=== PATIENT | male | born 1995 | race Caucasian/White ===

== ENCOUNTER 2020-05-10 07:45 | Outpatient (CLI) | payer OTHER ==
[2020-05-10 12:33] LABS: BASOPHILS # (AUTO) 0.1 10^3/uL (0.0-0.1); BASOPHILS % (AUTO) 0.8 %; EOSINOPHILS # (AUTO) 0.2 10^3/uL (0.0-0.7); HGB - HEMOGLOBIN 15.1 g/dL (14.0-18.0); LYMPHOCYTES # (AUTO) 1.6 10^3/uL (1.5-3.5); LYMPHOCYTES % (AUTO) 26.5 %; MEAN CORPUSCULAR HGB CONC 33.2 g/dL (32.0-36.0); MEAN CORPUSCULAR VOLUME 96.4 fL (80.0-94.0); MEAN PLATELET VOLUME 10.8 fL (7.4-11.4); MONOCYTES # (AUTO) 0.4 10^3/uL (0.0-1.0); MONOCYTES % (AUTO) 7.3 %; NEUTROPHILS # (AUTO) 3.7 10^3/uL (1.5-6.6); NEUTROPHILS % (AUTO) 62.2 %; PLT - PLATELET COUNT 251 10^3/uL (130-450); RED BLOOD COUNT 4.72 10^6/uL (4.70-6.10); RED CELL DISTRIBUTION WIDTH 11.7 % (12.0-15.0); WHITE BLOOD COUNT 5.9 x10^3/uL (4.8-10.8)
[2020-05-10 13:11] LABS: ALBUMIN 5.4 g/dL (3.2-5.5); ALBUMIN/GLOBULIN RATIO 1.9 (1.0-2.2); ALKALINE PHOSPHATASE 64 IU/L (42-121); ALT ALANINE AMINOTRANSFERASE 22 IU/L (10-60); AST ASPARTATE AMINOTRANSFERASE 24 IU/L (10-42); BILIRUBIN,TOTAL 0.9 mg/dL (0.2-1.0); BUN - BLOOD UREA NITROGEN 10 mg/dL (6-20); CALCIUM 9.6 mg/dL (8.5-10.3); CARBON DIOXIDE - CO2 25 mmol/L (21-32); CHLORIDE 106 mmol/L (101-111); CHOL/HDL RATIO 3.9 (<5.0); CHOLESTEROL 229 mg/dL; GLUCOSE 100 mg/dL (70-100); HDL CHOLESTEROL 59 mg/dL; LDL CHOLESTEROL,CALCULATED 141 mg/dL; LDL/HDL RATIO 2.4 (<3.6); SODIUM 138 mmol/L (135-145); TOTAL PROTEIN 8.3 g/dL (6.7-8.2); VLDL CHOLESTEROL 29 mg/dL
== END 2020-05-10 23:59 | disposition home or self-care (01) ==
LOC: LAB.WCP 07:45
PROVIDERS: ATTEND Family Medicine
DX: Z00.00 Encounter for general adult medical examination without abnormal findings (principal); F32.9 Major depressive disorder, single episode, unspecified
CPT/HCPCS: 36415; 80053; 80061; 82306; 83721; 84443; 85025

== ENCOUNTER 2020-11-09 18:38 | Outpatient (CLI) | payer OTHER | END 2020-11-09 18:39 | disposition home or self-care (01) | LOC: COV 18:38 | PROVIDERS: ATTEND Family Medicine | DX: R05 Cough (principal); Z20.822 Contact with and (suspected) exposure to COVID-19; R53.83 Other fatigue; R68.83 Chills (without fever); J02.9 Acute pharyngitis, unspecified; R09.81 Nasal congestion ==

== ENCOUNTER 2021-10-16 08:00 | Outpatient (CLI) | payer OTHER | END 2021-10-16 23:59 | LOC: LAB.N 08:00 | PROVIDERS: ATTEND Physician Assistant | DX: U07.1 COVID-19 (principal) ==

== ENCOUNTER 2022-11-15 08:00 | Outpatient (CLI) | payer MEDICAID, OTHER ==
[2022-11-16 00:01] LABS: CHLAMYDIA TRACHOMATIS DNA NEGATIVE (NEGATIVE); NEISSERIA GONORRHOEAE DNA NEGATIVE (NEGATIVE)
[2022-11-17 08:08] LABS: RPR Non Reactive (Non Reactive)
[2022-11-17 09:08] LABS: HSV 2 IGG TYPE SPEC <0.91 index (0.00-0.90)
[2022-11-17 11:08] LABS: HIV SCREEN 4TH GENERATION Non Reactive (Non Reactive)
[2022-11-18 14:08] LABS: HCV AB <0.1 s/co ratio (0.0-0.9)
== END 2022-11-15 23:59 | disposition home or self-care (01) ==
LOC: LAB.N 08:00
PROVIDERS: ATTEND Family Medicine
DX: Z11.3 Encounter for screening for infections with a predominantly sexual mode of transmission (principal)
CPT/HCPCS: 36415; 86592; 86695; 86696; 86803; 87389; 87491; 87591; 87661

== ENCOUNTER 2023-09-12 13:59 | Emergency (ER) | payer MEDICAID, OTHER ==
[2023-09-12 14:11] VITALS: O2SAT 100
--- NOTE | 2023-09-12 14:26 | ED Physician Documentation ---
PD HPI LOWER EXT INJURY - Stated complaint Stated Complaint: RT FT SWELLING - Chief complaint Chief Complaint: Trauma Ext - History obtained from History obtained from: Patient - History of Present Illness PD HPI LOW EXT INJURY LOCATION: Right, Ankle Type of injury: Twist (stepping down/ fall from lower rungs of ladder, landing to right foot and twisting inversion of ankle.) Where injury occurred: Home Timing - onset: How many days ago (3) Timing - details: Abrupt onset, Still present Associated symptoms: Weakness, Swelling, Discolored (bruising showed at sides of heel today.) Recently seen: Not recently seen Review of Systems Skin: denies: Abrasion (s), Laceration (s) Musculoskeletal: denies: Back pain Neurologic: denies: Focal weakness, Numbness PD PAST MEDICAL HISTORY - Past Medical History Past Medical History: No - Past Surgical History Past Surgical History: Yes - Present Medications Home Medications: Ambulatory Orders Medication Instructions Recorded Confirmed No Known Home Medications 09/12/23 09/12/23 - Allergies Allergies/Adverse Reactions: Allergies Allergy/AdvReac Type Severity Reaction Status Date / Time amoxicillin Allergy Unknown Verified 09/12/23 14:12 cefaclor [From Ceclor] Allergy Unknown Verified 09/12/23 14:12 sulfamethoxazole Allergy Unknown Verified 09/12/23 14:12 [From Septra] trimethoprim [From Septra] Allergy Unknown Verified 09/12/23 14:12 - Social History Does the pt smoke?: No Smoking Status: Never smoker PD ED PE NORMAL - Vitals Vital signs reviewed: Yes - General General: Alert and oriented X 3, No acute distress, Well developed/nourished - Derm Derm: Normal color, Warm and dry - Extremities Extremities: Other (right ankle with tendernesa and swelling mainly laterally but some medial as well. Effusion of joint. There is purple bruising linear on medial and lateral sides of heel. Not tender in those areas though. Stress testing of ankle ligaments not done due to pain.) - Neuro Neuro: Alert and oriented X 3, No motor deficit (though oimited stength due to pain of movement. ), No sensory deficit, Normal speech Results - Vitals Vitals: Vital Signs - 24 hr 09/12/23 09/12/23 14:08 15:35 Temperature 36.4 C L 36.5 C Heart Rate 100 90 Respiratory 15 16 Rate Blood Pressure 153/84 H 140/80 H O2 Saturation 100 100 - Rads (name of study) right ankle Relevant Findings:: Prelim report reviewed, EMP independent interpretation of test (no fractures. ) PD Medical Decision Making - ED course Complexity details: reviewed results (xray showed no fractures. ), considered differential (had injury to ankle when stepping down and inversion. Pain, swelling and now bruising ankle and foot. Unable to put full weight due to pain. Can get xray to distinguish fx from sprain. ), d/w patient Departure - Departure Disposition: 01 Home, Self Care Clinical Impression: Moderate right ankle sprain Qualifiers: Encounter type: initial encounter Qualified Code(s): S93.401A - Sprain of unspecified ligament of right ankle, initial encounter Condition: Stable Record reviewed to determine appropriate education?: Yes Instructions: ED Sprain Ankle Follow-Up: Orthopedic Care [Provider Group] Comments: Your x-ray appears normal without any signs of fractures. However there is a lot of swelling and some bruising around the ankle suggesting some partial tears of the ligaments and muscles. These can still take a while for healing, typically in the several weeks timeframe compared to several days to week for simple sprain. Use the walking boot to help support the ankle initially and likely for the first week or 2. As it is feeling improved, you can switch to a simpler type ankle brace that can be gotten at the store such as a lace on type or one that fits like a stirrup. I would suggest having some support to the ankle for likely a month timeframe as this is healing to keep from reinjury. Progress use and ambulating in such as tolerated. I would anticipate a good improvement over the first week or 2 and then slower improvement through the remainder of the month. Follow-up with orthopedics if not improving well in that sort of timeframe. Elevate ice and rest your ankle often for swelling. I would suggest some anti- inflammatory such as ibuprofen or naproxen 2 or 3 times daily for the next week or so to help with inflammation and pain. Add Tylenol if needed every 4-6 hours. Forms: PCP List, Activity restrictions Discharge Date/Time: 09/12/23 15:35
[2023-09-12 15:37] VITALS: BP 140/80
--- NOTE | 2023-09-12 15:53 | XRAY Report ---
PROCEDURE: Ankle 3 View RT INDICATIONS: ankle injury 3 days ago TECHNIQUE: 3 views of the ankle were acquired. COMPARISON: None. FINDINGS: Bones: No fractures or dislocations. Ankle mortise is normally aligned. No suspicious bony lesions . Soft tissues: There is a small tibiotalar joint effusion. There is mild lateral malleolar soft tiss ue swelling. Achilles tendon appears normal. IMPRESSION: Mild soft tissue swelling and small joint effusion. No fracture visualized. If there is high clinical suspicion for occult fracture, short interval repeat study or cross-section al imaging could be used. Reviewed by: Ashleigh Miller MD on 09/12/2023 3:51 PM PST Approved by: Ashleigh Miller MD on 09/12/2023 3:51 PM PST Station ID: [id number]
== END 2023-09-12 15:35 | disposition home or self-care (01) ==
LOC: ED 13:59
DX: S93.401A Sprain of unspecified ligament of right ankle, initial encounter (principal); X50.1XXA Overexertion from prolonged static or awkward postures, initial encounter; Y93.89 Activity, other specified; Y92.89 Other specified places as the place of occurrence of the external cause
CPT/HCPCS: 99283

== ENCOUNTER 2023-10-15 10:00 | Outpatient (CLI) | payer MEDICAID ==
[2023-10-15 12:09] LABS: BASOPHILS # (AUTO) 0.1 10^3/uL (0.0-0.1); EOSINOPHILS # (AUTO) 0.2 10^3/uL (0.0-0.7); EOSINOPHILS % (AUTO) 2.7 %; HGB - HEMOGLOBIN 15.4 g/dL (14.0-18.0); LYMPHOCYTES # (AUTO) 1.2 10^3/uL (1.5-3.5); LYMPHOCYTES % (AUTO) 19.7 %; MEAN CORPUSCULAR HEMOGLOBIN 34.1 pg (27.0-31.0); MEAN CORPUSCULAR HGB CONC 33.5 g/dL (32.0-36.0); MEAN PLATELET VOLUME 10.3 fL (7.4-11.4); MONOCYTES # (AUTO) 0.8 10^3/uL (0.0-1.0); NEUTROPHILS # (AUTO) 3.7 10^3/uL (1.5-6.6); NEUTROPHILS % (AUTO) 61.6 %; PLT - PLATELET COUNT 251 10^3/uL (130-450); RED BLOOD COUNT 4.51 10^6/uL (4.70-6.10); RED CELL DISTRIBUTION WIDTH 11.9 % (12.0-15.0)
[2023-10-15 12:44] LABS: CALCIUM 9.7 mg/dL (8.5-10.3); CREATININE 0.7 mg/dL (0.6-1.3); POTASSIUM 4.8 mmol/L (3.5-4.5)
== END 2023-10-15 10:15 | disposition home or self-care (01) ==
LOC: LAB.N 10:00
PROVIDERS: ATTEND Nurse Practitioner
DX: S93.401A Sprain of unspecified ligament of right ankle, initial encounter (principal)
CPT/HCPCS: 36415; 80048; 85025; 85379

== ENCOUNTER 2023-10-23 07:53 | Outpatient (CLI) | payer MEDICAID ==
--- NOTE | 2023-10-23 09:02 | XRAY Report ---
PROCEDURE: Ankle 3 View RT INDICATIONS: RIGHT ANKLE PAIN TECHNIQUE: 3 views of the ankle were acquired. COMPARISON: Ankle x-ray right 09/12/2023. FINDINGS: Bones: No fractures or dislocations. Ankle mortise is normally aligned. No suspicious bony lesions . Soft tissues: No tibiotalar joint effusion. Achilles tendon appears normal. IMPRESSION: No acute bony abnormality. Resolution of ankle joint effusion. Reviewed by: Man Castillo MD on 10/23/2023 9:00 AM [facility] Approved by: Man Castillo MD on 10/23/2023 9:00 AM [facility] Station ID: [id number]
== END 2023-10-23 23:59 | disposition home or self-care (01) ==
LOC: DI.WOS 07:53
PROVIDERS: ATTEND Physician Assistant Surgical
DX: S93.401D Sprain of unspecified ligament of right ankle, subsequent encounter (principal)